=== PATIENT | female | born 1985 | race Two or more races ===

== ENCOUNTER 2017-11-03 11:07 | Emergency (ER) | payer OTHER ==
[~2017-11-03] VITALS: Ht 160 cm; Wt 85.3 kg
[~2017-11-03 11:07] MED LIST: PRENATAL1 TAB PO
[2017-11-03] MEDS ORDERED: ONDANSETRON ODT8 MG PO (13:40)
[2017-11-03] MEDS ORDERED: PROMETHAZINE D118 ML PO (13:40)
[2017-11-03] MEDS ORDERED: OSEL75CA PO (13:40)
[2017-11-03] MEDS ORDERED: AIRBORNE EFFER1 EACH PO (13:40)
[2017-11-03] MEDS ORDERED: ULTRACET PO (13:40)
== END 2017-11-03 13:57 | disposition home or self-care (01) ==
LOC: ER 11:07
DX: J11.1 Influenza due to unidentified influenza virus with other respiratory manifestations (principal); B34.9 Viral infection, unspecified

== ENCOUNTER → 2019-11-10 14:25 | Outpatient (CLI) | payer OTHER ==
[~2019-11-10 14:25] MED LIST changes: +AIRBORNE EFFER1 EACH PO; +ONDANSETRON ODT8 MG PO; +OSEL75CA PO; +PROMETHAZINE D118 ML PO; +ULTRACET PO
== END | disposition home or self-care (01) ==
LOC: LAB 14:25
DX: J11.1 Influenza due to unidentified influenza virus with other respiratory manifestations (principal)